=== PATIENT | female | born 1985 | race Caucasian/White ===

== ENCOUNTER 2017-10-14 07:52 | Outpatient (CLI) | payer OTHER ==
[2017-10-14] MEDS ORDERED: Iopamidol 370 76% 100 ML VIAL ONE (11:31)
== END 2017-10-14 07:53 | disposition home or self-care (01) ==
LOC: BICCT 07:52
PROVIDERS: ATTEND Internal Medicine Hematology & Oncology
DX: C64.1 Malignant neoplasm of right kidney, except renal pelvis (principal); K22.8 Other specified diseases of esophagus; Z90.5 Acquired absence of kidney
CPT/HCPCS: 71046; 74177

== ENCOUNTER 2023-05-16 14:17 | Outpatient (CLI) | payer OTHER | END 2023-05-16 14:18 | disposition home or self-care (01) | LOC: BICMAMMO 14:17 | PROVIDERS: ATTEND Registered Nurse Hospice | DX: N64.4 Mastodynia (principal); N63.10 Unspecified lump in the right breast, unspecified quadrant | CPT/HCPCS: 77066; G0279 ==